=== PATIENT | female | born 1975 | race Caucasian/White ===

== ENCOUNTER 2016-02-29 13:27 | Emergency (ER) | payer SELFPAY ==
--- NOTE | 2016-02-29 14:07 | DIRPT ---
CLINICAL DATA: Left hand pain. Fifth digit pain. EXAM: LEFT HAND - COMPLETE 3+ VIEW COMPARISON: None. FINDINGS: There is a nondisplaced fracture of the proximal aspect of the fifth proximal phalanx. There is no other fracture or dislocation. There is soft tissue swelling over the fifth metacarpal. IMPRESSION: Nondisplaced fracture of the proximal aspect of the fifth proximal phalanx. Electronically Signed By: Alexsandra Shannon On: 02/29/2016 14:04
[2016-02-29 14:20] VITALS: BP 158/89; PULSE 94
--- NOTE | 2016-02-29 14:21 | EDPRACDOC ---
- General Information Stated Complaint: LEFT HAND PAIN Time Seen by Provider: 02/29/16 14:16 Home Medications: Home Medications Omeprazole 20 mg PO DAILY #42 tablet. 01/02/15 Cyclobenzaprine HCl [Flexeril] 10 mg PO TID PRN #15 tablet 11/14/15 Hydrocodone Bit/Acetaminophen [Lortab 5/325] 1 tab PO Q4-6H PRN #15 tab Hydrocodone Bit/Acetaminophen [Hydrocodon-Acetaminophen 5-325] 1 tab PO Q6 PRN # 20 tab 02/29/16 Allergies/Adverse Reactions: Allergies Allergy/AdvReac Type Severity Reaction Status Date / Time ciprofloxacin [From Cipro] Allergy Severe hives Verified 11/14/15 20:40 ciprofloxacin HCl Allergy Severe hives Verified 11/14/15 20:40 [From Cipro] acetaminophen [From Percocet] Allergy Anaphylaxis Verified 11/14/15 20:40 * oxycodone HCl [From Percocet] Allergy Anaphylaxis Verified 11/14/15 20:40 * morphine AdvReac Unknown Hypotension Verified 11/14/15 20:40 - History of Present Illness Onset: [employer] HPI: PT STATES THAT SHE WAS PLAYING WITH HER DOG WHEN THE DOG "HEAD BUTTED" HER IN THE LEFT HAND, STATES THAT HER LEFT 5TH FINGER WAS "STICKING SIDEWAYS" STATES SHE "PUT IT BACK IN PLACE", PT COMPLAINS OF PAIN, SWELLING AND BRUISING TO LEFT 5TH FINGER AND LEFT HAND, NO OTHER INJURY. Location: Reports: Left, Hand, 5th Finger Dominant Hand: Right Mechanism: Reports: Blunt Trauma Circumstances: Reports: Other Tetanus Up To Date?: Yes Associated Signs & Symptoms: Reports: Hand Pain. Denies: Numbness, Weakness, Wrist Pain, Forearm Pain, Elbow Pain ED Past Medical History - History Reviewed Yes Nurses notes reviewed and agree except as marked - Patient Medical History GI/ History: Reports: Kidney Stones Psychological History: Denies: Depression, Substance Use Disorder Surgical History: Reports: Hysterectomy - Family Medical History Reports: Cancer (Mother: at 53 of lung cancer.), Stroke (Father: stroke), Cardiac Disorders (Father at 62 yo of [place] and CHF, had EF 20%.), Respiratory Disorders (Father: COPD, smoked.) - Social Medical History Smoking Status: Never smoker Social History: Denies: Substance Use Disorder EDM Review of Systems - Review of Systems Neurological: negative: Numbness, Weakness Musculoskeletal: Hand Integumentary: Bruising - Physical Exam Constitutional: Alert (Awake), No apparent distress Oriented to: Time, Person, Place Last recorded Vital Signs: Oxygen Pulse Oxygen Saturation O2 Device Oxygen Flow Rate Fraction of Inspired Oxygen ( FIO2) - HEENT Head: Normal ( normocephalic) - Neurologic Memory Impaired: Normal Motor Function: Normal (Normal tone, Pulses 2+ No cyanosis or edema, FROM) Cranial Nerve: Normal (CN II-X11 intact sensation, strength 5/5) Cerebellar: Normal Mood Description: Normal Perception: Normal ED Hand Problem Physical Exam - Musculoskeletal Hand: Swelling, Mild Tenderness (OVER 5TH MCP). negative: Deformity, Limited ROM Wrist: Normal. negative: Swelling, Deformity Digit: Swelling, Limited ROM, Moderate Tenderness (PROXIMAL LEFT 5TH FINGER). negative: Deformity Digit Strength: Flexion (DECREASED DUE TO PAIN) Nail: Normal Nailbed: Normal Soft Tissue: Normal Distal Function/Circulation: Normal, Capillary Refill. negative: Motor Deficit , Pulse Deficit, Sensory Deficit - Integumentary Skin: Ecchymosis - Differential Diagnosis Contusion, Dislocation, Fracture - Diagnostic Imaging LEFT HAND Image interpreted by: Radiologist LEFT HAND - COMPLETE 3+ VIEW COMPARISON: None. FINDINGS: There is a nondisplaced fracture of the proximal aspect of the fifth proximal phalanx. There is no other fracture or dislocation. There is soft tissue swelling over the fifth metacarpal. IMPRESSION: Nondisplaced fracture of the proximal aspect of the fifth proximal phalanx. Decision Time to Discharge: 14:21 - Departure Disposition: Home Condition: Stable Final Diagnosis: LEFT 5TH FINGER FRACTURE, CLOSED Instructions: Finger Fracture (ED) Education/Counseling Given To: Patient Education/Counseling Given Regarding: Diagnosis, Treatment, Prognosis, Follow Up Referrals: Saranya Jovel MD [Primary Care Provider] - One Week Prescriptions: Hydrocodone Bit/Acetaminophen [Hydrocodon-Acetaminophen 5-325] 1 tab PO Q6 PRN # 20 tab PRN Reason: Pain Additional Instructions: WEAR SPLINT, ELEVATE YOUR FINGER AND APPLY COLD COMPRESSES NEEDED FOR PAIN OR SWELLING, RETURN TO THE ED FOR ANY WORSENING SYMPTOMS OR CONCERNS.
[2016-02-29 14:28] VITALS: TEMP 98.9; BMI 44.9
== END 2016-02-29 14:30 | disposition home or self-care (01) ==
LOC: EDMC 13:27
DX: S62.607A Fracture of unspecified phalanx of left little finger, initial encounter for closed fracture (principal); W54.1XXA Struck by dog, initial encounter; Y93.89 Activity, other specified
CPT/HCPCS: 99282